=== PATIENT | male | born 1980 | race American Indian/Alaskan Native ===

== ENCOUNTER 2020-05-08 22:51 | Inpatient (IN) | payer MEDICAID ==
[~2020-05-08] VITALS: Ht 180.3 cm; Wt 140.0 kg
[2020-05-08 23:44] LABS: ANION GAP 16 (8-16); BLOOD UREA NITROGEN 49 MG/DL (7-18); BUN/CREATININE RATIO 4.5 (5.4-32.0); CALCIUM 8.6 MG/DL (8.5-10.1); CHLORIDE 106 MMOL/L (99-107); GLUCOSE 100 MG/DL (70-104); POTASSIUM 4.4 MMOL/L (3.5-5.1); SODIUM 138 MMOL/L (135-145); TOTAL CARBON DIOXIDE 16.5 MMOL/L (24-32); eGFR 5 ML/MIN
[2020-05-09] MEDS ORDERED: LACT10SO PO (00:10)
[2020-05-09] MEDS ORDERED: ALBU8HFA PO (00:10)
[2020-05-09] MEDS ORDERED: OMEP40CA13 PO (00:10)
[2020-05-09] MEDS ORDERED: AMLO10TA48 PO (00:10)
[2020-05-09] MEDS ORDERED: ALBU2.5V12 NEB (00:10)
[2020-05-09] MEDS ORDERED: CLOT15CR10 TOP (00:10)
[2020-05-09] MEDS ORDERED: SODI650T29 PO (00:13)
[2020-05-09] MEDS ORDERED: METO-384 PO (00:13)
[2020-05-09] MEDS ORDERED: CHOL500049 PO (00:13)
[2020-05-09] MEDS ORDERED: FURO40TA4 PO (00:13)
[2020-05-09] MEDS ORDERED: SPIR50TA5 PO (00:13)
[2020-05-09] MEDS ORDERED: vitamin D (cholecalciferol) 1,000 unit tablet PO SCH (00:50)
[2020-05-09] MEDS ORDERED: albuterol 2.5 MG/3 ML nebule NEB PRN (00:50)
[2020-05-09] MEDS ORDERED: hydrALAZINE 20mg/ml inj. IV PRN (00:55)
[2020-05-09] MEDS ORDERED: hydrALAZINE 20mg/ml inj. IV ONE (00:55)
[2020-05-09] MEDS ORDERED: ondansetron/PF 4mg/2ml inj IV PRN (00:55)
[2020-05-09] MEDS ORDERED: acetaminophen 325mg tablet PO PRN ×2 (00:55)
--- NOTE | 2020-05-09 01:51 | NUR ---
Pt is refusing to have IV placed after two attempts. Pt flinches when IV needle pokes the skin, then was upset, stating the site hurt when pressure placed on the site. Another nurse will attempt to place IV in patient.
[2020-05-09 03:27] VITALS: BP 188/130
--- NOTE | 2020-05-09 03:32 | NUR ---
Called ELADIO Miller for HTN 188/130 1hr post hydralazine for SBP 180. ELADIO Miller said it likely won't work for blood pressure that high because he needs dialysis. He said to change the order of hydralazine to SBP >180. Will not admin hydralazine at this time due to medication ineffective.
[2020-05-09] MEDS: HYDROcodone/acetaminophen 5mg/325mg tablet PO PRN ×2 (03:39→21:44)
--- NOTE | 2020-05-09 06:38 | NUR ---
Patient in room PCU 3012. I have received report from Abdulaziz YOUNG and had the opportunity to ask questions and assume patient care.
--- NOTE | 2020-05-09 06:39 | NUR ---
Problems reprioritized. Patient report given, questions answered & plan of care reviewed with Raulito YOUNG
[2020-05-09 07:00] VITALS: BP 161/91
[2020-05-09] MEDS: sodium bicarbonate 650mg tablet PO SCH ×2 (09:01→20:12)
[2020-05-09] MEDS: clotrimazole topical cream 15gm tube TP SCH ×2 (09:01→20:13)
[2020-05-09] MEDS: pantoprazole 40mg Tablet.DR PO SCH (09:02)
[2020-05-09] MEDS: spironolactone 50 MG tablet PO SCH (09:02)
[2020-05-09] MEDS: lactulose 20gm/30ml cup PO SCH ×4 (09:02→21:43)
[2020-05-09] MEDS: metoprolol succinate 25mg (24-HOUR) SR. Tablet PO SCH (09:02)
[2020-05-09] MEDS: furosemide 40mg tablet PO SCH (09:02)
[2020-05-09] MEDS: amLODIPine 5mg tablet PO SCH (09:03)
[2020-05-09] MEDS ORDERED: heparin 1,000unit/ml 10ml vial 10 ML IV ONE (09:40)
[2020-05-09] MEDS ORDERED: epoetin 20,000 units/ml inj IV ONE (09:40)
[2020-05-09] MEDS ORDERED: normal saline 1000ml 250 ML IV PRN (09:40)
[2020-05-09] MEDS ORDERED: heparin 1,000 units/ml 10ml inj HE ONE ×2 (09:45)
[2020-05-09 10:37] LABS: BASOPHILS # (AUTO) 0.1 X10'3 (0-0.2); BASOPHILS % (AUTO) 0.9 % (0-1); EOSINOPHILS # (AUTO) 0.3 X10'3 (0-0.9); EOSINOPHILS % (AUTO) 4.8 % (0-6); HEMATOCRIT 32.3 % (42.0-52.0); HEMOGLOBIN 10.9 g/dl (14.0-17.9); LYMPHOCYTES # (AUTO) 0.9 X10'3 (1.1-4.8); LYMPHOCYTES % (AUTO) 13.4 % (21-51); MEAN CORPUSCULAR HGB CONC 33.6 g/dL (33.0-36.5); MEAN CORPUSCULAR VOLUME 92.2 FL (78-98); MEAN PLATELET VOLUME 6.8 FL (7.4-10.4); MONOCYTES # (AUTO) 0.5 X10'3 (0-0.9); MONOCYTES % (AUTO) 7.7 % (2-12); NEUTROPHILS # (AUTO) 4.8 X10'3 (1.8-7.7); NEUTROPHILS % (AUTO) 73.2 % (42-75); PLATELET COUNT 203 X10'3 (140-440); RED CELL DISTRIBUTION WIDTH 14.6 % (11.5-14.5); WHITE BLOOD COUNT 6.5 X10'3 (4.5-11.0)
[2020-05-09 11:00] VITALS: BP 173/107
[2020-05-09 15:00] VITALS: BP 167/122
[2020-05-09] MEDS: hyDRALAzine 10mg tablet PO SCH (17:49)
[2020-05-09 18:00] VITALS: BP 176/111
--- NOTE | 2020-05-09 18:24 | NUR ---
Problems reprioritized. Patient report given, questions answered & plan of care reviewed with Ese YOUNG.
--- NOTE | 2020-05-09 18:32 | NUR ---
Patient in room PCU 3012. I have received report from Raulito YOUNG and had the opportunity to ask questions and assume patient care.
[2020-05-09 22:00] VITALS: BP 159/86
[2020-05-10] MEDS: hyDRALAzine 10mg tablet PO SCH ×2 (00:15→07:30)
[2020-05-10 02:00] VITALS: BP 132/70
[2020-05-10 06:30] VITALS: BP 157/112
--- NOTE | 2020-05-10 06:30 | NUR ---
Patient in room PCU 3012C. I have received report from Ese YOUNG and had the opportunity to ask questions and assume patient care.
[2020-05-10 06:36] LABS: ALBUMIN 2.7 G/DL (3.4-5.0); ANION GAP 10 (8-16); BASOPHILS # (AUTO) 0.1 X10'3 (0-0.2); BASOPHILS % (AUTO) 0.8 % (0-1); BILIRUBIN,TOTAL 0.7 MG/DL (0.1-1.0); BLOOD UREA NITROGEN 30 MG/DL (7-18); BUN/CREATININE RATIO 3.8 (5.4-32.0); CALCIUM 8.5 MG/DL (8.5-10.1); CHLORIDE 103 MMOL/L (99-107); EOSINOPHILS # (AUTO) 0.4 X10'3 (0-0.9); EOSINOPHILS % (AUTO) 4.9 % (0-6); GLUCOSE 96 MG/DL (70-104); HEMATOCRIT 33.6 % (42.0-52.0); HEMOGLOBIN 11.3 g/dl (14.0-17.9); LYMPHOCYTES # (AUTO) 1.2 X10'3 (1.1-4.8); LYMPHOCYTES % (AUTO) 15.4 % (21-51); MAGNESIUM 1.9 MG/DL (1.5-2.4); MEAN CORPUSCULAR HEMOGLOBIN 30.6 PG (27.0-31.0); MEAN CORPUSCULAR HGB CONC 33.6 g/dL (33.0-36.5); MEAN CORPUSCULAR VOLUME 91.2 FL (78-98); MEAN PLATELET VOLUME 6.7 FL (7.4-10.4); MONOCYTES # (AUTO) 0.6 X10'3 (0-0.9); MONOCYTES % (AUTO) 8.5 % (2-12); NEUTROPHILS # (AUTO) 5.4 X10'3 (1.8-7.7); NEUTROPHILS % (AUTO) 70.4 % (42-75); PHOSPHORUS 6.3 MG/DL (2.3-4.5); PLATELET COUNT 219 X10'3 (140-440); POTASSIUM 3.8 MMOL/L (3.5-5.1); RED BLOOD COUNT 3.69 X10'6 (4.70-6.10); SODIUM 137 MMOL/L (135-145); TOTAL CARBON DIOXIDE 23.8 MMOL/L (24-32); WHITE BLOOD COUNT 7.6 X10'3 (4.5-11.0); eGFR 8 ML/MIN
[2020-05-10 06:37] LABS: ALANINE AMINOTRANSFERASE 15 U/L (12-78); ALBUMIN/GLOBULIN RATIO 0.6 (1.1-1.5); ALKALINE PHOSPHATASE 111 IU/L (46-116); ASPARTATE AMINO TRANSFERASE 14 U/L (10-37)
[2020-05-10] MEDS: sodium bicarbonate 650mg tablet PO SCH (07:30)
[2020-05-10] MEDS: spironolactone 50 MG tablet PO SCH (07:30)
[2020-05-10] MEDS: furosemide 40mg tablet PO SCH (07:30)
[2020-05-10] MEDS: pantoprazole 40mg Tablet.DR PO SCH (07:30)
[2020-05-10] MEDS: metoprolol succinate 25mg (24-HOUR) SR. Tablet PO SCH (07:30)
[2020-05-10] MEDS: clotrimazole topical cream 15gm tube TP SCH (07:30)
[2020-05-10] MEDS: amLODIPine 5mg tablet PO SCH (07:31)
[2020-05-10] MEDS: lactulose 20gm/30ml cup PO SCH (07:31)
--- NOTE | 2020-05-10 08:14 | NUR ---
Problems reprioritized. Patient report given, questions answered & plan of care reviewed with Nella YOUNG.
[2020-05-10 11:00] VITALS: BP 156/102
--- NOTE | 2020-05-10 13:07 | NUR ---
Patient told aide that he wanted to leave AMA and wanted to speak to the doctor. I informed NICK Baltazar that patient wanted to leave and she went to talk to him. After discussion with Rachell, patient still wanted to sign self out of hospital. Ruma Lovett let Dr Vazquez know, and he asked that we inform patient that he needs to call [facility] when he leaves to arrange dialysis chair in order to continue treatment. Patient signed AMA form, IV removed with catheter intact and tele monitor removed and returned to [facility]. All belongings sent with patient, and patient ambulated self out of hospital.
== END 2020-05-10 13:07 | disposition left against medical advice (07) | DRG 470 ==
LOC: ER 22:53 → ED HOLD 05-09 00:55 → PCU 3S 05-09 02:30
PROVIDERS: ADMIT Internal Medicine Critical Care Medicine; ATTEND Internal Medicine Critical Care Medicine
PROC: 5A1D70Z Performance of Urinary Filtration, Intermittent, Less than 6 Hours Per Day (ICD-10-PCS; principal; 2020-05-09)
DX: I12.0 Hypertensive chronic kidney disease with stage 5 chronic kidney disease or end stage renal disease (principal); N18.6 End stage renal disease; Z53.29 Procedure and treatment not carried out because of patient's decision for other reasons; Z99.2 Dependence on renal dialysis; Z79.899 Other long term (current) drug therapy
CPT/HCPCS: 36415; 71045; 80048; 80053; 83735; 83880; 84100; 85025; 86704; 86803; 87081; 87340; 93005; 94760; 99285; G0378; J0360; J1644

== ENCOUNTER 2020-05-12 08:58 | Emergency (ER) | payer MEDICAID ==
[~2020-05-12] VITALS: Ht 180.3 cm; Wt 150.0 kg
[~2020-05-12 08:58] MED LIST: ALBU2.5V12 NEB; ALBU8HFA PO; AMLO10TA48 PO; CHOL500049 PO; CLOT15CR10 TOP; FURO40TA4 PO; LACT10SO PO; METO-384 PO; OMEP40CA13 PO; SODI650T29 PO; SPIR50TA5 PO
--- NOTE | 2020-05-12 09:37 | NUR ---
PT. TOLD THAT HE NEEDS TO SET UP OUTPATIENT DIALYSIS, CAN CONTACT HIS PRIMARY DOCTOR AND THEY CAN GET IN TOUCH WITH [facility].
[2020-05-12 09:42] LABS: BASOPHILS # (AUTO) 0.1 X10'3 (0-0.2); EOSINOPHILS # (AUTO) 0.4 X10'3 (0-0.9); EOSINOPHILS % (AUTO) 5.1 % (0-6); HEMATOCRIT 33.6 % (42.0-52.0); HEMOGLOBIN 11.2 g/dl (14.0-17.9); LYMPHOCYTES # (AUTO) 1.4 X10'3 (1.1-4.8); MEAN CORPUSCULAR HEMOGLOBIN 30.6 PG (27.0-31.0); MEAN CORPUSCULAR HGB CONC 33.5 g/dL (33.0-36.5); MEAN CORPUSCULAR VOLUME 91.3 FL (78-98); MEAN PLATELET VOLUME 6.7 FL (7.4-10.4); MONOCYTES # (AUTO) 0.8 X10'3 (0-0.9); MONOCYTES % (AUTO) 9.3 % (2-12); NEUTROPHILS # (AUTO) 5.8 X10'3 (1.8-7.7); NEUTROPHILS % (AUTO) 68.6 % (42-75); PLATELET COUNT 256 X10'3 (140-440); RED BLOOD COUNT 3.68 X10'6 (4.70-6.10); RED CELL DISTRIBUTION WIDTH 14.2 % (11.5-14.5); WHITE BLOOD COUNT 8.5 X10'3 (4.5-11.0)
[2020-05-12 09:50] LABS: ALANINE AMINOTRANSFERASE 17 U/L (12-78); ALBUMIN 2.8 G/DL (3.4-5.0); ALBUMIN/GLOBULIN RATIO 0.6 (1.1-1.5); ALKALINE PHOSPHATASE 107 IU/L (46-116); ANION GAP 9 (8-16); ASPARTATE AMINO TRANSFERASE 14 U/L (10-37); BILIRUBIN,TOTAL 0.3 MG/DL (0.1-1.0); BLOOD UREA NITROGEN 47 MG/DL (7-18); BUN/CREATININE RATIO 4.4 (5.4-32.0); CALCIUM 8.5 MG/DL (8.5-10.1); CHLORIDE 106 MMOL/L (99-107); CREATININE 10.74 MG/DL (0.60-1.10); GLUCOSE 137 MG/DL (70-104); MAGNESIUM 1.9 MG/DL (1.5-2.4); PHOSPHORUS 4.7 MG/DL (2.3-4.5); POTASSIUM 3.9 MMOL/L (3.5-5.1); SODIUM 138 MMOL/L (135-145); TOTAL PROTEIN 7.3 G/DL (6.4-8.2); eGFR 5 ML/MIN
[2020-05-12 10:15] VITALS: BP 166/101
== END 2020-05-12 10:27 | disposition left against medical advice (07) ==
LOC: ER 08:58
DX: I12.0 Hypertensive chronic kidney disease with stage 5 chronic kidney disease or end stage renal disease (principal); N18.6 End stage renal disease; Z99.2 Dependence on renal dialysis; Z79.899 Other long term (current) drug therapy
CPT/HCPCS: 36415; 80053; 83735; 84100; 85025; 93005; 99284